=== PATIENT | male | born 1980 | race Caucasian/White ===

== ENCOUNTER 2025-01-07 01:09 | Emergency (ER) | payer SELFPAY ==
[2025-01-07 01:25] VITALS: TEMP 98.5; BMI 27.4
[2025-01-07] MEDS ORDERED: LIDOCAINE 1%/EPI 1:100000 (20 ML MULTI DOSE VIAL) ONE (01:25)
[2025-01-07] MEDS ORDERED: CEFTRIAXONE 2 GM-D5W BAG 2 GM/50 ML BAG IVPB ONE (02:00)
[2025-01-07] MEDS ORDERED: DIPHTH,PERTUSS(ACELL),TET 0.5 ML DISP.SYRIN IM ONE (02:01)
[2025-01-07] MEDS: CEFTRIAXONE 2 GM in DEXTROSE 5%-WATER - 50 ML IVPB ONE (02:12)
[2025-01-07] MEDS: DIPHTH,PERTUSS(ACELL),TET 0.5 ML DISP.SYRIN IM ONE (02:12)
[2025-01-07] MEDS: SODIUM CHLORIDE 1,000 ML IV STA (02:12)
[2025-01-07 02:15] LABS: ABSOLUTE IMMATURE GRANULOCYTES 0.08 x10^3/uL (0.0-0.031); BASOPHILS # 0.05 x10^3/uL (0.01-0.08); EOSINOPHIL % 0.9 % (0.8-7.0); EOSINOPHILS # 0.13 x10^3/uL (0.04-0.54); MCHC 34.2 g/dl (32.3-36.5); MEAN CELL VOLUME 97.8 fl (79.0-92.2); MEAN PLT VOLUME 10.3 fl (9.4-12.4); MONOCYTE # 0.87 x10^3/uL (0.30-0.82); MONOCYTE % 5.9 % (5.3-12.2); RDW 12.1 % (12.1-15.9)
[2025-01-07 02:41] LABS: ACTIVATED PTT 27.6 SECONDS (25.2-36.5); INR 0.92 (0.83-1.09); PROTHROMBIN TIME (PATIENT) 10.0 SEC (9.7-13.0)
[2025-01-07 02:55] LABS: CO2 23.0 mmol/L (21-32); GLUCOSE,RANDOM 167.0 mg/dL (74-106)
[2025-01-07 02:57] LABS: CREATININE 0.8 mg/dL (0.55-1.3); SGOT/AST 92.0 U/L (15-37); SGPT/ALT 201.0 U/L (13-61)
[2025-01-07 02:59] LABS: TOT PROT 7.8 g/dl (6.4-8.2)
[2025-01-07 03:01] LABS: ALK PHOS 135.0 U/L (45-117)
[2025-01-07 05:18] VITALS: BP 157/89; PULSE 87; RESP 20
== END 2025-01-07 05:20 | disposition short-term general hospital (02) ==
LOC: JER 01:09
DX: S01.01XA Laceration without foreign body of scalp, initial encounter (principal); S01.23XA Puncture wound without foreign body of nose, initial encounter; S80.211A Abrasion, right knee, initial encounter; S80.212A Abrasion, left knee, initial encounter; X58.XXXA Exposure to other specified factors, initial encounter; Y92.410 Unspecified street and highway as the place of occurrence of the external cause
CPT/HCPCS: 36415; 70450-TC; 70486-TC; 72125-TC; 80053; 85025; 85610; 85730; 86850; 86900; 86901; 90715; 99285-25